=== PATIENT | male | born 1945 | race Caucasian/White ===

== ENCOUNTER → 2016-10-27 | Outpatient (CLI) | payer OTHER ==
--- NOTE | ~2016-10-27 | CT71 ---
[facility] A Service [facility] RADIOLOGY TEXT RESULTS PATIENT: HARRY PIMENTEL LOCATION: [facility] : 45 UNIT #: [id number] AGE: [address]: Catia Giron MD SEX: M ORDER DR: [id number] [facility]. [place], [place] [address] [id number] O MR#: [id number] Acc #: [id number] NAME: HARRY PIMENTEL : 1945 SEX: M STUDY DATE/TIME: 10/27/2016 16:11 UNIT: [facility] ROOM: STUDY DESCRIPTION: CT Head Wo Contrast Attending Physician: Catia Giron M.D. Referring Physician: Catia Giron M.D. Ordering Physician: Catia Giron M.D. Primary Care Physician: Catia Giron M.D. MEDICAL IMAGING REPORT This report is preliminary unless electronic signature is present EXAM CT head INDICATION Fall and hit head. Head trauma. Blurred vision and dizziness. TECHNIQUE CT of the head without contrast. This CT exam was performed with one or more of the following radiation dose reduction techniques: automatic exposure control, adjustment of mA and/or kV according to patient size, and iterative reconstruction. COMPARISON None available. FINDINGS There is no acute intracranial hemorrhage, mass lesion, or acute infarct. Agustin-white matter differentiation is within normal limits. The ventricles and basilar cisterns are normal in size and configuration. No extraaxial collections. No acute osseous abnormalities. IMPRESSION No acute intracranial findings. Dictated by... Ted Dye M.D. THIS IS AN ELECTRONICALLY VERIFIED REPORT Ted Dye M.D. at 10/28/2016 10:53 AM PARMJIT/franklyn [facility] A Service [facility] RADIOLOGY TEXT RESULTS PATIENT: HARRY PIMENTEL LOCATION: [facility] : [birth year] UNIT #: [id number] AGE: [address]: Catia Giron MD SEX: M ORDER DR: TD: 10/28/2016 10:31 JOB #: [id number] MEDICAL IMAGING REPORT Page 1 of 1 COPY
== END | disposition home or self-care (01) ==
LOC: CCAT 15:00
DX: S09.90XA Unspecified injury of head, initial encounter (principal); F07.81 Postconcussional syndrome; H53.8 Other visual disturbances
CPT/HCPCS: 70450